=== PATIENT | male | born 2005 | race Caucasian/White ===

== ENCOUNTER 2024-03-17 20:57 | Emergency (ER) | payer BC, SELFPAY ==
[2024-03-17 21:02] VITALS: BP 140/89
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
== END 2024-03-17 23:01 | disposition home or self-care (01) ==
LOC: EMR 20:57
PROVIDERS: EMERGENCY PHYSICIAN Emergency Medicine
DX: S01.112A Laceration without foreign body of left eyelid and periocular area, initial encounter (principal); W50.0XXA Accidental hit or strike by another person, initial encounter; Y93.72 Activity, wrestling; R03.0 Elevated blood-pressure reading, without diagnosis of hypertension
CPT/HCPCS: 99282; 12011

== ENCOUNTER 2025-10-17 10:03 | Emergency (ER) | payer SELFPAY ==
[2025-10-17 10:05] VITALS: BP 151/87
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
[2025-10-17] MEDS: FLEXERIL 5 MG PO (11:06)
== END 2025-10-17 13:51 | disposition home or self-care (01) ==
LOC: EMR 10:03
PROVIDERS: EMERGENCY PHYSICIAN Emergency Medicine
DX: M54.2 Cervicalgia (principal); R51.9 Headache, unspecified; V43.52XA Car driver injured in collision with other type car in traffic accident, initial encounter
CPT/HCPCS: 99283; 72040